=== PATIENT | male | born 1960 | race Caucasian/White ===

== ENCOUNTER 2018-01-10 03:13 | Emergency (ER) | payer SELFPAY ==
[2018-01-10] MEDS ORDERED: Sulfameth/Trimethoprim DS 800-160mg TAB ONE (03:27)
[2018-01-10] MEDS ORDERED: Ibuprofen 200 MG TAB ONE (03:28)
== END 2018-01-10 03:36 ==
LOC: BURERS 03:13
DX: L03.115 Cellulitis of right lower limb (principal); F17.210 Nicotine dependence, cigarettes, uncomplicated
CPT/HCPCS: 99283